=== PATIENT | female | born 1965 | race Caucasian/White ===

== ENCOUNTER 2020-04-12 08:01 | Day surgery (SDC) | payer BC, OTHER ==
[~2020-04-12] VITALS: Ht 157.5 cm; Wt 103.4 kg
[~2020-04-12 08:01] MED LIST: ATORVASTATIN CA40 MG PO; BUPROPION300 MG PO; CHERRY TART PO; CLINDAMYCIN HC150 MG PO; DICLOFENAC50 MG PO; FISH OIL1 CAP PO; FLUCONAZOLE150 MG PO; LINZESS145 MCG PO; LIPITOR20 M1 PO; LIPITOR40 M1 PO; MAGNESIUM500 MG PO; MONTELUKAST SOD10 MG PO; OMEPRAZOLE20 MG PO; OZEMPIC2 MG/1.5 M; PREMARIN0.3 MG PO; TOPIRAMATE50 MG PO; TRULICITY0.75 MG/0. SC
[2020-04-12] MEDS ORDERED: QMIIZ ODT15 MG PO (08:51)
[2020-04-12 10:09] VITALS: BP 108/69
== END 2020-04-12 10:05 | disposition home or self-care (01) | DRG 951 ==
LOC: ENDO 08:01
PROVIDERS: ATTEND Surgery
PROC: 0DJD8ZZ Inspection of Lower Intestinal Tract, Via Natural or Artificial Opening Endoscopic (ICD-10-PCS; principal; 2020-04-12)
DX: Z12.11 Encounter for screening for malignant neoplasm of colon (principal); K57.30 Diverticulosis of large intestine without perforation or abscess without bleeding; K64.8 Other hemorrhoids; Z11.59 Encounter for screening for other viral diseases

== ENCOUNTER 2020-09-23 13:44 | Emergency (ER) | payer BC, OTHER ==
[~2020-09-23] VITALS: Ht 157.5 cm; Wt 102.7 kg
[~2020-09-23 13:44] MED LIST changes: +QMIIZ ODT15 MG PO
[2020-09-23] MEDS ORDERED: TRULICITY0.75 MG/0. (14:51)
[2020-09-23] MEDS ORDERED: ZOFRAN4 MG/TAB PO (16:39)
[2020-09-23] MEDS ORDERED: ZPAK PO (16:41)
[2020-09-23 16:49] VITALS: BP 144/94
== END 2020-09-23 16:55 | disposition home or self-care (01) | DRG 153 ==
LOC: ED 13:44
DX: J06.9 Acute upper respiratory infection, unspecified (principal); E11.9 Type 2 diabetes mellitus without complications; Z20.822 Contact with and (suspected) exposure to COVID-19

== ENCOUNTER 2021-03-25 14:08 | Emergency (ER) | payer OTHER ==
[~2021-03-25 14:08] MED LIST changes: +TRULICITY0.75 MG/0.; +ZOFRAN4 MG/TAB PO; +ZPAK PO
[2021-03-25 15:43] VITALS: BP 122/78
[2021-03-25 16:22] LABS: HEMATOCRIT 43.1 % (37.0-47.0); HEMOGLOBIN 14.1 g/dl (12.0-16.0); IMMATURE GRANULOCYTES 0.2 % (0.0-5.0); MEAN CELL VOLUME 83.9 fL CALC (80.0-100.0); MEAN CORPUSCULAR HGB 27.4 pG CALC (26.0-32.0); MEAN CORPUSCULAR HGB CONC 32.7 g/dL CAL (32.0-36.0); NEUT# 15.29 thou/uL (2.00-7.15); RED BLOOD COUNT 5.14 mill/uL (4.20-5.60); RED CELL DISTRI WIDTH 14.6 % (11.5-15.5)
[2021-03-25 16:40] LABS: ALBUMIN 4.3 g/dL (3.2-5.0); ALKALINE PHOSPHATASE 86 u/l (38-126); AMYLASE 55 u/l (30-110); ANION GAP 17 (6-22 (CALC)); BILIRUBIN, TOTAL 1.2 mg/dL (0.0-1.4); BUN 7 mg/dL (7-17); BUN/CREATININE RATIO 10 (12-20 (CALC)); CARBON DIOXIDE 20 mmol/l (22-30); CHLORIDE 103 mmol/l (95-108); CREATININE 0.7 mg/dL (0.5-1.0); GFR > 60 ML/MIN (>=60 (CALC)); GFR FOR AFR.AMER. > 60 ML/MIN (>=60 (CALC)); LIPASE 59 u/l (23-300); POTASSIUM 3.3 mmol/l (3.5-5.1); SGOT/AST 29 u/l (14-36); SODIUM 136 mmol/l (137-146); TOTAL PROTEIN 7.6 g/dL (6.3-8.2)
[2021-03-25 16:55] LABS: URINE BLOOD DIPSTICK SMALL (NEGATIVE); URINE COLOR YELLOW; URINE GLUCOSE - DIPSTICK NEGATIVE (NEGATIVE); URINE KETONE >=80 mg/dL (NEGATIVE); URINE PROTEIN - DIPSTICK 100 mg/dL (NEG-TRACE); URINE SPECIFIC GRAVITY 1.025
[2021-03-25 16:56] LABS: URINE BILIRUBIN - DIPSTICK NEGATIVE (NEGATIVE); URINE LEUK ESTERASE MODERATE (NEGATIVE); URINE NITRITE - DIPSTICK NEGATIVE (Negative)
[2021-03-25 17:05] LABS: URINE SQUAMOUS EPITHELIAL CELL FEW EPI/hpf (0-FEW); URINE WBC TNTC WBC/hpf (0-5)
== END 2021-03-25 20:30 | disposition short-term general hospital (02) | DRG 445 ==
LOC: ED 14:08
DX: K81.9 Cholecystitis, unspecified (principal); N39.0 Urinary tract infection, site not specified; E11.9 Type 2 diabetes mellitus without complications; B96.20 Unspecified Escherichia coli [E. coli] as the cause of diseases classified elsewhere; Z95.828 Presence of other vascular implants and grafts; Z86.73 Personal history of transient ischemic attack (TIA), and cerebral infarction without residual deficits; Z20.822 Contact with and (suspected) exposure to COVID-19
CPT/HCPCS: Q9967

== ENCOUNTER 2021-07-07 11:42 | Emergency (ER) | payer OTHER ==
[~2021-07-07] VITALS: Ht 157.5 cm; Wt 77.5 kg
[2021-07-07 13:40] LABS: HEMATOCRIT 40.4 % (37.0-47.0); HEMOGLOBIN 13.2 g/dl (12.0-16.0); IMMATURE GRANULOCYTES 0.5 % (0.0-5.0); MEAN CELL VOLUME 87.1 fL CALC (80.0-100.0); MEAN CORPUSCULAR HGB 28.4 pG CALC (26.0-32.0); MEAN CORPUSCULAR HGB CONC 32.7 g/dL CAL (32.0-36.0); NEUT# 15.38 thou/uL (2.00-7.15); RED BLOOD COUNT 4.64 mill/uL (4.20-5.60); RED CELL DISTRI WIDTH 14.1 % (11.5-15.5)
[2021-07-07 13:58] LABS: ACT PARTIAL THROMBO TIME 28.2 SECONDS (20.0-32.5); INTERNATIONAL NORMALIZED RATIO 1.1 RATIO (0.7-1.3); PROTHROMBIN TIME 11.3 SECONDS (9.0-12.5)
[2021-07-07 14:01] LABS: ALBUMIN 3.6 g/dL (3.2-5.0); ANION GAP 18 (6-22 (CALC)); BILIRUBIN, TOTAL 1.3 mg/dL (0.0-1.4); BUN 10 mg/dL (7-17); BUN/CREATININE RATIO 12 (12-20 (CALC)); CARBON DIOXIDE 20 mmol/l (22-30); CHLORIDE 97 mmol/l (95-108); CREATININE 0.8 mg/dL (0.5-1.0); GFR > 60 ML/MIN (>=60 (CALC)); GFR FOR AFR.AMER. > 60 ML/MIN (>=60 (CALC)); LIPASE 66 u/l (23-300); POTASSIUM 3.4 mmol/l (3.5-5.1); SGOT/AST 35 u/l (14-36); SODIUM 131 mmol/l (137-146); TOTAL PROTEIN 7.5 g/dL (6.3-8.2)
[2021-07-07 14:10] LABS: ALKALINE PHOSPHATASE 141 u/l (38-126)
[2021-07-07 17:03] LABS: URINE BILIRUBIN - DIPSTICK NEGATIVE (NEGATIVE); URINE BLOOD DIPSTICK NEGATIVE (NEGATIVE); URINE COLOR YELLOW; URINE GLUCOSE - DIPSTICK NEGATIVE (NEGATIVE); URINE KETONE 40 mg/dL (NEGATIVE); URINE PH 6.5 (4.5-8.0); URINE PROTEIN - DIPSTICK NEGATIVE (NEG-TRACE); URINE SPECIFIC GRAVITY <=1.005; URINE UROBILINOGEN - DIPSTICK 0.2 E.U./dL (0.2)
[2021-07-07 17:04] LABS: URINE LEUK ESTERASE SMALL (NEGATIVE); URINE NITRITE - DIPSTICK NEGATIVE (Negative)
[2021-07-07 17:09] LABS: URINE BACTERIA FEW hpf; URINE RBC 0-2 RBC/hpf (0-5); URINE SQUAMOUS EPITHELIAL CELL MANY EPI/hpf (0-FEW)
[2021-07-07 18:57] VITALS: BP 112/55
--- NOTE | 2021-07-10 07:23 | NUR ---
PRELIMINARY BLOOD CULTURE RESULTS CALLEWD TO CHARGE NURSE LATISHA 08/15 VIALS GROWING GRAM (-) JORGE LUIS. RESULTS FAXED TO [phone]
== END 2021-07-07 18:58 | DRG 863 ==
LOC: ED 11:42
DX: T81.43XA Infection following a procedure, organ and space surgical site, initial encounter (principal); K56.7 Ileus, unspecified; E11.9 Type 2 diabetes mellitus without complications; Y83.6 Removal of other organ (partial) (total) as the cause of abnormal reaction of the patient, or of later complication, without mention of misadventure at the time of the procedure; Z86.73 Personal history of transient ischemic attack (TIA), and cerebral infarction without residual deficits; Z79.01 Long term (current) use of anticoagulants; Z20.822 Contact with and (suspected) exposure to COVID-19; Z90.49 Acquired absence of other specified parts of digestive tract
CPT/HCPCS: Q9967

== ENCOUNTER 2021-07-27 17:55 | Emergency (ER) | payer OTHER ==
[~2021-07-27] VITALS: Ht 157.5 cm; Wt 70.0 kg
[2021-07-27 21:10] VITALS: BP 124/69
== END 2021-07-27 21:10 | disposition home or self-care (01) | DRG 316 ==
LOC: ED 17:55
DX: T82.594A Other mechanical complication of infusion catheter, initial encounter (principal); Y83.8 Other surgical procedures as the cause of abnormal reaction of the patient, or of later complication, without mention of misadventure at the time of the procedure; Z86.73 Personal history of transient ischemic attack (TIA), and cerebral infarction without residual deficits

== ENCOUNTER 2021-08-24 11:36 | Emergency (ER) | payer OTHER ==
[~2021-08-24] VITALS: Ht 157.5 cm; Wt 58.0 kg
[2021-08-24 16:37] LABS: IMMATURE GRANULOCYTES 0.1 % (0.0-5.0); MEAN CELL VOLUME 89.5 fL CALC (80.0-100.0); MEAN CORPUSCULAR HGB 29.1 pG CALC (26.0-32.0); MEAN CORPUSCULAR HGB CONC 32.6 g/dL CAL (32.0-36.0); NEUT# 5.79 thou/uL (2.00-7.15); RED BLOOD COUNT 5.32 mill/uL (4.20-5.60); RED CELL DISTRI WIDTH 17.1 % (11.5-15.5)
[2021-08-24 16:41] LABS: HEMATOCRIT 47.6 % (37.0-47.0); HEMOGLOBIN 15.5 g/dl (12.0-16.0)
[2021-08-24 16:55] LABS: ALKALINE PHOSPHATASE 107 u/l (38-126); AMYLASE 120 u/l (30-110); BILIRUBIN, TOTAL 0.9 mg/dL (0.0-1.4); BUN 12 mg/dL (7-17); BUN/CREATININE RATIO 18 (12-20 (CALC)); CARBON DIOXIDE 23 mmol/l (22-30); CHLORIDE 92 mmol/l (95-108); CREATININE 0.6 mg/dL (0.5-1.0); GFR > 60 ML/MIN (>=60 (CALC)); GFR FOR AFR.AMER. > 60 ML/MIN (>=60 (CALC)); SGOT/AST 31 u/l (14-36); SODIUM 135 mmol/l (137-146); TOTAL PROTEIN 8.2 g/dL (6.3-8.2)
[2021-08-24 16:58] LABS: ALBUMIN 4.4 g/dL (3.2-5.0); ANION GAP 24 (6-22 (CALC)); POTASSIUM 4.3 mmol/l (3.5-5.1)
[2021-08-24 20:54] LABS: URINE BLOOD DIPSTICK NEGATIVE (NEGATIVE); URINE GLUCOSE - DIPSTICK NEGATIVE (NEGATIVE); URINE KETONE >=80 mg/dL (NEGATIVE); URINE LEUK ESTERASE NEGATIVE (NEGATIVE); URINE PROTEIN - DIPSTICK 30 mg/dL (NEG-TRACE); URINE SPECIFIC GRAVITY >=1.030; URINE UROBILINOGEN - DIPSTICK 0.2 E.U./dL (0.2)
[2021-08-24 21:01] LABS: URINE BILIRUBIN - DIPSTICK MODERATE (NEGATIVE); URINE NITRITE - DIPSTICK NEGATIVE (Negative)
[2021-08-24 21:02] LABS: URINE COLOR DK. YELLOW
[2021-08-24 21:11] LABS: URINE MUCUS MANY hpf (NONE-FEW); URINE SQUAMOUS EPITHELIAL CELL MODERATE EPI/hpf (0-FEW)
[2021-08-24] MEDS ORDERED: PROMETHAZINE HY25 M1 PO (23:26)
[2021-08-24 23:42] VITALS: BP 112/68
[2021-08-25] MEDS ORDERED: KEFLEX500 MG PO (01:18)
== END 2021-08-24 23:55 | disposition home or self-care (01) | DRG 392 ==
LOC: ED 11:36
PROVIDERS: Emergency Medicine
DX: K29.70 Gastritis, unspecified, without bleeding (principal); N39.0 Urinary tract infection, site not specified; Z90.49 Acquired absence of other specified parts of digestive tract; Z86.73 Personal history of transient ischemic attack (TIA), and cerebral infarction without residual deficits; Z95.828 Presence of other vascular implants and grafts
CPT/HCPCS: Q9967; S0164

== ENCOUNTER 2021-09-03 19:51 | Emergency (ER) | payer OTHER ==
[~2021-09-03] VITALS: Ht 157.5 cm; Wt 68.0 kg
[~2021-09-03 19:51] MED LIST changes: +KEFLEX500 MG PO; +PROMETHAZINE HY25 M1 PO
[2021-09-04 00:05] LABS: HEMATOCRIT 43.8 % (37.0-47.0); HEMOGLOBIN 14.4 g/dl (12.0-16.0); IMMATURE GRANULOCYTES 0.3 % (0.0-5.0); MEAN CELL VOLUME 88.1 fL CALC (80.0-100.0); MEAN CORPUSCULAR HGB CONC 32.9 g/dL CAL (32.0-36.0); NEUT# 4.1 thou/uL (2.00-7.15); RED BLOOD COUNT 4.97 mill/uL (4.20-5.60); RED CELL DISTRI WIDTH 16.5 % (11.5-15.5)
[2021-09-04 00:25] LABS: ALBUMIN 3.6 g/dL (3.2-5.0); ALKALINE PHOSPHATASE 100 u/l (38-126); ANION GAP 14 (6-22 (CALC)); BILIRUBIN, TOTAL 0.6 mg/dL (0.0-1.4); BUN 11 mg/dL (7-17); BUN/CREATININE RATIO 17 (12-20 (CALC)); CARBON DIOXIDE 27 mmol/l (22-30); CHLORIDE 95 mmol/l (95-108); CREATININE 0.7 mg/dL (0.5-1.0); GFR > 60 ML/MIN (>=60 (CALC)); GFR FOR AFR.AMER. > 60 ML/MIN (>=60 (CALC)); SGOT/AST 48 u/l (14-36); SODIUM 133 mmol/l (137-146); TOTAL PROTEIN 6.8 g/dL (6.3-8.2)
[2021-09-04 00:37] LABS: MYOGLOBIN 312 ng/mL (0 - 62)
[2021-09-04 00:43] LABS: POTASSIUM 2.8 mmol/l (3.5-5.1)
[2021-09-04 01:21] LABS: URINE BILIRUBIN - DIPSTICK NEGATIVE (NEGATIVE); URINE BLOOD DIPSTICK NEGATIVE (NEGATIVE); URINE COLOR YELLOW; URINE GLUCOSE - DIPSTICK NEGATIVE (NEGATIVE); URINE KETONE 15 mg/dL (NEGATIVE); URINE LEUK ESTERASE NEGATIVE (NEGATIVE); URINE PROTEIN - DIPSTICK NEGATIVE (NEG-TRACE); URINE UROBILINOGEN - DIPSTICK 0.2 E.U./dL (0.2)
[2021-09-04 01:32] LABS: URINE NITRITE - DIPSTICK NEGATIVE (Negative)
[2021-09-04 02:38] LABS: CPK 190 u/l (30-165)
[2021-09-04] MEDS ORDERED: CYCLOBENZAPRINE10 MG PO (05:58)
[2021-09-04] MEDS ORDERED: ULTRAM50 M1 PO (05:58)
[2021-09-04 07:12] VITALS: BP 114/76
== END 2021-09-04 08:17 | disposition home or self-care (01) | DRG 556 ==
LOC: ED 19:51
PROVIDERS: Emergency Medicine
DX: M79.10 Myalgia, unspecified site (principal); E87.6 Hypokalemia; Z86.73 Personal history of transient ischemic attack (TIA), and cerebral infarction without residual deficits; Z20.822 Contact with and (suspected) exposure to COVID-19

== ENCOUNTER 2021-09-11 18:24 | Emergency (ER) | payer OTHER ==
[~2021-09-11] VITALS: Ht 157.5 cm; Wt 67.0 kg
[~2021-09-11 18:24] MED LIST changes: +CYCLOBENZAPRINE10 MG PO; +ULTRAM50 M1 PO
[2021-09-11 21:46] LABS: HEMATOCRIT 37.9 % (37.0-47.0); HEMOGLOBIN 12.1 g/dl (12.0-16.0); IMMATURE GRANULOCYTES 0.3 % (0.0-5.0); MEAN CELL VOLUME 92.9 fL CALC (80.0-100.0); MEAN CORPUSCULAR HGB 29.7 pG CALC (26.0-32.0); MEAN CORPUSCULAR HGB CONC 31.9 g/dL CAL (32.0-36.0); NEUT# 3.83 thou/uL (2.00-7.15); RED BLOOD COUNT 4.08 mill/uL (4.20-5.60); RED CELL DISTRI WIDTH 19.5 % (11.5-15.5)
[2021-09-11 22:03] LABS: ALBUMIN 3.6 g/dL (3.2-5.0); ALKALINE PHOSPHATASE 127 u/l (38-126); AMYLASE 55 u/l (30-110); BUN 6 mg/dL (7-17); BUN/CREATININE RATIO 11 (12-20 (CALC)); CARBON DIOXIDE 22 mmol/l (22-30); CHLORIDE 103 mmol/l (95-108); CREATININE 0.5 mg/dL (0.5-1.0); GFR > 60 ML/MIN (>=60 (CALC)); GFR FOR AFR.AMER. > 60 ML/MIN (>=60 (CALC)); LIPASE 97 u/l (23-300); SGOT/AST 42 u/l (14-36); SODIUM 136 mmol/l (137-146)
[2021-09-11 22:06] LABS: ANION GAP 15 (6-22 (CALC)); BILIRUBIN, TOTAL 1.3 mg/dL (0.0-1.4); POTASSIUM 3.5 mmol/l (3.5-5.1)
[2021-09-11 22:14] LABS: MYOGLOBIN 147 ng/mL (0 - 62)
[2021-09-11 22:57] LABS: URINE BILIRUBIN - DIPSTICK NEGATIVE (NEGATIVE); URINE BLOOD DIPSTICK TRACE-LYSED (NEGATIVE); URINE COLOR YELLOW; URINE GLUCOSE - DIPSTICK NEGATIVE (NEGATIVE); URINE KETONE NEGATIVE (NEGATIVE); URINE PROTEIN - DIPSTICK NEGATIVE (NEG-TRACE); URINE SPECIFIC GRAVITY <=1.005; URINE UROBILINOGEN - DIPSTICK 0.2 E.U./dL (0.2)
[2021-09-11 23:01] LABS: URINE LEUK ESTERASE MODERATE (NEGATIVE); URINE NITRITE - DIPSTICK NEGATIVE (Negative)
[2021-09-11 23:03] LABS: URINE SQUAMOUS EPITHELIAL CELL FEW EPI/hpf (0-FEW); URINE TRANSITIONAL EPI. CELLS MANY hpf
[2021-09-11 23:58] VITALS: BP 134/86
== END 2021-09-12 00:10 | disposition home or self-care (01) | DRG 392 ==
LOC: ED 18:24
PROVIDERS: Family Medicine
DX: R10.13 Epigastric pain (principal); R82.71 Bacteriuria; Z90.49 Acquired absence of other specified parts of digestive tract
CPT/HCPCS: S0164

== ENCOUNTER 2021-10-02 17:56 | Emergency (ER) | payer OTHER ==
[~2021-10-02] VITALS: Ht 157.5 cm; Wt 63.0 kg
[2021-10-02] MEDS ORDERED: ASPIRIN81 MG PO (19:28)
[2021-10-02] MEDS ORDERED: NORVASC2.5 M1 PO (19:28)
[2021-10-02] MEDS ORDERED: BACTRIM DS1 TAB PO (20:42)
[2021-10-02] MEDS ORDERED: LORTAB 1010 MG PO (20:48)
[2021-10-02 20:53] VITALS: BP 125/85
== END 2021-10-02 20:53 | disposition home or self-care (01) | DRG 761 ==
LOC: ED 17:56
PROC: 0UQGXZZ Repair Vagina, External Approach (ICD-10-PCS; principal; 2021-10-02)
DX: S31.41XA Laceration without foreign body of vagina and vulva, initial encounter (principal); M25.512 Pain in left shoulder; I10 Essential (primary) hypertension; W01.0XXA Fall on same level from slipping, tripping and stumbling without subsequent striking against object, initial encounter

== ENCOUNTER 2021-12-05 05:32 | Emergency (ER) | payer OTHER ==
[~2021-12-05] VITALS: Ht 157.5 cm; Wt 54.5 kg
[~2021-12-05 05:32] MED LIST changes: +ASPIRIN81 MG PO; +BACTRIM DS1 TAB PO; +LORTAB 1010 MG PO; +NORVASC2.5 M1 PO
[2021-12-05 05:40] VITALS: BP 133/82
[2021-12-05] MEDS ORDERED: OMEPRAZOLE DR40 MG PO (05:48)
[2021-12-05] MEDS ORDERED: TOPIRAMATE50 MG PO (05:49)
[2021-12-05 06:00] VITALS: BP 124/90
[2021-12-05 06:24] VITALS: BP 123/87
[2021-12-05 06:30] VITALS: BP 122/87
[2021-12-05 06:52] VITALS: BP 122/87
== END 2021-12-05 06:57 | disposition home or self-care (01) | DRG 605 ==
LOC: ED 05:32
DX: S00.83XA Contusion of other part of head, initial encounter (principal); I10 Essential (primary) hypertension; W06.XXXA Fall from bed, initial encounter; Z86.73 Personal history of transient ischemic attack (TIA), and cerebral infarction without residual deficits